=== PATIENT | male | born 1985 | race Caucasian/White ===

== ENCOUNTER 2018-10-07 20:37 | Emergency (ER) | payer SELFPAY ==
[~2018-10-07] VITALS: Ht 167.6 cm; Wt 70.3 kg
--- NOTE | 2018-10-07 21:05 | NUR ---
ED Nurse Note: RECIEVED PT BROUGHT IN BY POLICE WITH C/O LEFT WRIST / ARM SCAR, APPEARS TO BE OLD WOUND WITH SMALL AREA OF SCAB REMOVED, NO BLEEDING, REDNESS NOTED, PT DENIES PAIN, NO DISTRESS OR OTHER COMPLAINTS GIVEN.
--- NOTE | 2018-10-07 21:11 | Emergency Room Report ---
History of Present Illness General Chief Complaint: Medical Clearance Source: Patient Present Illness HPI This is a 33-year-old male with history of previous left forearm surgery. He was brought in by police for medical clearance. He has a wound on his left forearm. Please want it to be checked out. Patient has no complaint. No pain. No nausea no vomiting. No fever chills. Denies any other complaint. Allergies: Coded Allergies: No Known Allergies (Unverified , 10/07/18) Patient History Past Medical History: see triage record, old chart reviewed Past Surgical History: other Pertinent Family History: none Social History: Denies: smoking Immunizations: other Reviewed Nursing Documentation: PMH: Agreed; PSxH: Agreed Nursing Documentation-PMH Past Medical History: No Stated History Review of Systems Eye: Denies: eye pain, blurred vision ENT: Denies: ear pain, nose congestion, throat swelling Respiratory: Denies: cough, shortness of breath Cardiovascular: Denies: chest pain, palpitations Gastrointestinal: Denies: abdominal pain, diarrhea, nausea, vomiting Musculoskeletal: Denies: back pain, joint pain Skin: Denies: rash Neurological: Denies: headache, numbness Endocrine: Denies: increased thirst, increased urine Hematologic/Lymphatic: Denies: easy bruising All Other Systems: negative except mentioned in HPI Physical Exam Vital Signs Date Time Temp Pulse Resp B/P (MAP) Pulse Ox O2 Delivery O2 Flow Rate FiO2 10/07/18 20:54 97.5 93 16 124/82 (96) 98 Room Air Vitals normal Sp02 EP Interpretation: reviewed, normal General Appearance: well appearing, no apparent distress, alert Head: normocephalic, atraumatic Eyes: bilateral eye PERRL, bilateral eye EOMI ENT: hearing grossly normal, normal pharynx Neck: full range of motion, supple, no meningismus Respiratory: chest non-tender, lungs clear, normal breath sounds Cardiovascular #1: regular rate, rhythm, no murmur Gastrointestinal: normal bowel sounds, non tender, no mass, no organomegaly, no bruit, non-distended Musculoskeletal: back normal, gait/station normal, normal range of motion, other - Left Forearm: He has a healed surgical scar. At the part of the wound, there was evidence of dehiscent and granulation. No redness. No active drainage. Psychiatric: mood/affect normal Medical Decision Making Diagnostic Impression: Primary Impression: Encounter for postoperative wound check Additional Impression: Examination, medicolegal reason ER Course Patient here for wound check from his surgery. Most the wound healed without any issue. The distal part had dehiscent but is healing. There is no drainage. There is no evidence of cellulitis or abscess. I place a dressing over it and will discharge patient to police. Last Vital Signs Date Time Temp Pulse Resp B/P (MAP) Pulse Ox O2 Delivery O2 Flow Rate FiO2 10/07/18 20:54 97.5 93 16 124/82 (96) 98 Room Air Status: improved Disposition: D/C TO LAW ENFORCEMENT IN [facility]UST Condition: Stable Additional Instructions: Keep wound clean. Follow-up with your doctor in 7 days. Return if worse. Sudarshan Brewer MD Oct 07, 2018 21:11
[2018-10-07] MEDS ORDERED: Neosporin Oint Ud Pkt TOPIC ONE (21:15)
[2018-10-07 21:35] VITALS: BP 124/82
--- NOTE | 2018-10-07 21:35 | NUR ---
ER DISCHARGE NOTE: Patient is cleared to be discharged per ERMD, pt is aox4, on room air, with stable vital signs. pt was given dc and prescription instructions, pt was able to verbalize understanding, pt id band removed without complications. pt is able to ambulate with steady gait. pt took all belongings. pt leftt with officerrs in handcuffs.
== END 2018-10-07 21:35 ==
LOC: EMR 21:31
DX: S51.802A Unspecified open wound of left forearm, initial encounter (principal); Z98.890 Other specified postprocedural states; X58.XXXA Exposure to other specified factors, initial encounter; Y92.9 Unspecified place or not applicable
CPT/HCPCS: 99282